=== PATIENT | female | born 1945 | race Caucasian/White ===

== ENCOUNTER → 2020-03-06 | Outpatient (CLI) | payer MEDICARE ==
[~2020-03-06] MED LIST: DOCUSATE SODIU100 MG PO; ELIQUIS5 MG PO; GABAPENTIN400 MG PO; MEGA BIOTIN10000 MCG PO; MULTAQ 400 MG400 MG PO; OMEPRAZOLE40 MG PO; POTASSIUM PO; PRENATAL TABLE1 EAC1 PO; PROZAC20 MG PO; SENNA8.6 MG PO; TRIAMTERENE-HC1 EAC4 PO; VITAMIN C500 M4 PO; ZOCOR20 MG PO
[2020-03-06 12:48] LABS: RED BLOOD COUNT 4.57 M/UL (4.00-5.10); WHITE BLOOD COUNT 6.8 K/UL (4.5-11.0)
[2020-03-06 13:10] LABS: BUN/CREATININE RATIO 17 (0-10)
== END ==
LOC: LAB 12:17
PROVIDERS: Internal Medicine Cardiovascular Disease
DX: I48.92 Unspecified atrial flutter (principal); I10 Essential (primary) hypertension; R00.2 Palpitations
CPT/HCPCS: 36415; 71046; 80048; 85025

== ENCOUNTER 2020-03-08 09:33 | Outpatient (CLI) | payer MEDICARE ==
[~2020-03-08] VITALS: Ht 160 cm; Wt 92.2 kg
[2020-03-08] MEDS ORDERED: ELIQUIS5 MG PO (10:11)
[2020-03-08] MEDS ORDERED: MULTAQ 400 MG400 MG PO (10:12)
[2020-03-08] MEDS ORDERED: TRIAMTERENE-HC1 EAC4 PO (10:13)
[2020-03-08] MEDS ORDERED: ZOCOR20 MG PO (10:13)
[2020-03-08] MEDS ORDERED: OMEPRAZOLE40 MG PO (10:14)
[2020-03-08] MEDS ORDERED: GABAPENTIN400 MG PO (10:15)
[2020-03-08] MEDS ORDERED: PROZAC20 MG PO (10:17)
[2020-03-08] MEDS ORDERED: PRENATAL TABLE1 EAC1 PO (10:18)
[2020-03-08] MEDS ORDERED: VITAMIN C500 M4 PO (10:20)
[2020-03-08] MEDS ORDERED: MEGA BIOTIN10000 MCG PO (10:20)
[2020-03-08] MEDS ORDERED: DOCUSATE SODIU100 MG PO (10:23)
[2020-03-08] MEDS ORDERED: SENNA8.6 MG PO (10:24)
[2020-03-08] MEDS ORDERED: POTASSIUM PO (10:39)
== END 2020-03-09 10:14 | disposition home or self-care (01) ==
LOC: PROG CARE 09:33 → CATH 09:33 → PROG CARE 15:30 → CATH 03-09 10:14
DX: I48.92 Unspecified atrial flutter (principal); I49.5 Sick sinus syndrome; I10 Essential (primary) hypertension; E78.5 Hyperlipidemia, unspecified; R00.1 Bradycardia, unspecified; R60.0 Localized edema; I83.819 Varicose veins of unspecified lower extremity with pain; M10.9 Gout, unspecified; F32.9 Major depressive disorder, single episode, unspecified; Z79.01 Long term (current) use of anticoagulants; Z79.899 Other long term (current) drug therapy; Z88.1 Allergy status to other antibiotic agents; Z86.16 Personal history of COVID-19
CPT/HCPCS: 93005; 93609; 93621; 93623; 93655; 99152; 99153; C1730; C1733; C1766; J1200; J1644; J2250; J3010; J7040; J7050

== ENCOUNTER → 2020-04-29 | Outpatient (CLI) | payer MEDICARE | LOC: HEART 5 13:48 | DX: R00.1 Bradycardia, unspecified (principal) ==